=== PATIENT | female | born 1945 | race Caucasian/White ===

== ENCOUNTER → 2023-09-03 | Outpatient (REF) | payer MEDICARE | LOC: M LAB REF 12:09 | PROVIDERS: ATTEND Internal Medicine | DX: N39.0 Urinary tract infection, site not specified (principal) ==

== ENCOUNTER → 2023-10-09 | Outpatient (CLI) | payer MEDICARE | LOC: M WHC 10:47 | PROVIDERS: ATTEND Internal Medicine | DX: Z12.31 Encounter for screening mammogram for malignant neoplasm of breast (principal); Z13.820 Encounter for screening for osteoporosis; M85.89 Other specified disorders of bone density and structure, multiple sites ==

== ENCOUNTER → 2023-12-24 | Outpatient (CLI) | payer MEDICARE | LOC: M WUC 10:45 | PROVIDERS: ATTEND Nurse Practitioner Family | DX: M25.561 Pain in right knee (principal) ==

== ENCOUNTER → 2024-11-24 | Outpatient (CLI) | payer MEDICARE | LOC: M WHC 10:41 | PROVIDERS: ATTEND Internal Medicine | DX: Z12.31 Encounter for screening mammogram for malignant neoplasm of breast (principal); R92.313 Mammographic fatty tissue density, bilateral breasts ==

== ENCOUNTER 2025-05-05 17:44 | Emergency (ER) | payer MEDICARE ==
[~2025-05-05] VITALS: Ht 149.9 cm; Wt 66.7 kg
[2025-05-05] MEDS ORDERED: LOSA100T8 (17:53)
[2025-05-05] MEDS ORDERED: NYST15PO3 (17:53)
[2025-05-05] MEDS ORDERED: ATOR1TAB19 (17:53)
[2025-05-05] MEDS ORDERED: EZET10TA21 (17:53)
[2025-05-05] MEDS ORDERED: METO1TAB33 (17:53)
[2025-05-05] MEDS: NS 500 ML IV ONE (20:40)
[2025-05-05 21:11] LABS: BASO # 0.1 10^3/uL (0.0-0.2); BASO % 0.8 % (0.0-1.0); EOS # 0.2 10^3/uL (0.0-0.5); EOS % 1.1 % (0.0-3.0); LYMPH # 2.0 10^3/uL (1.5-5.0); LYMPH % 15.0 % (24.0-44.0); MONO # 1.0 10^3/uL (0.0-0.8); MONO % 7.2 % (2.0-8.0); NEUTROPHILS # 10.0 10^3/uL (1.5-8.5); NEUTROPHILS % 75.4 % (36.0-66.0); PLATELET COUNT, AUTOMATED 323 10^3/uL (150-450)
[2025-05-05 21:24] LABS: INR 0.93
[2025-05-05 21:28] LABS: MYOGLOBIN 36.0 NG/ML (<110)
[2025-05-05 21:30] LABS: ALT/SGPT 19 U/L (7.0-40); AST/SGOT 22 U/L (<34); C REACTIVE PROTEIN QUANTITATIV < 0.50 MG/DL (<1.0); CALCIUM LEVEL 10.0 MG/DL (8.3-10.6); CARBON DIOXIDE LEVEL 28 MMOL/L (20-31); CHLORIDE LEVEL 101 MMOL/L (98-107); CPK CREATINE PHOSPHOKINASE 31 U/L (34-145); CREATININE FOR GFR 0.89 MG/DL (0.55-1.30); GLOMERULAR FILTRATION RATE 65.1 (>32); MAGNESIUM LEVEL 1.9 MG/DL (1.8-2.4); POTASSIUM SERUM 4.2 MMOL/L (3.5-5.1); SODIUM LEVEL 141 MMOL/L (136-145)
[2025-05-05] MEDS: TETANUS/DIPHTH/ACEL. PERTUSSIS 0.5 ML SYR IM.IMMUN ONE (22:10)
[2025-05-05] MEDS ORDERED: MUPI30CR TOP (22:34)
[2025-05-05 22:35] VITALS: BP 171/76; TEMP 97.1; O2SAT 96
== END 2025-05-05 22:45 | disposition left against medical advice (07) ==
LOC: M ED 17:44
DX: T20.27XA Burn of second degree of neck, initial encounter (principal); T21.21XA Burn of second degree of chest wall, initial encounter; T23.201A Burn of second degree of right hand, unspecified site, initial encounter; T22.331A Burn of third degree of right upper arm, initial encounter; I10 Essential (primary) hypertension; R94.31 Abnormal electrocardiogram [ECG] [EKG]; Z79.899 Other long term (current) drug therapy; Z53.9 Procedure and treatment not carried out, unspecified reason; T31.11 Burns involving 10-19% of body surface with 10-19% third degree burns